=== PATIENT | female | born 1980 | race Caucasian/White ===

== ENCOUNTER 2017-05-19 09:35 | Emergency (ER) | payer BC ==
[~2017-05-19] VITALS: Ht 170.2 cm; Wt 80.7 kg
[2017-05-19] MEDS ORDERED: KETOROLAC TROMETHAMINE 60 MG INJ IM ONE ×2 (10:15→11:56)
[2017-05-19] MEDS ORDERED: ONDANSETRON IV *ER 4 MG/2 ML VIAL IV ONE (10:15)
[2017-05-19] MEDS ORDERED: MORPHINE SULFATE 2 MG/1 ML DISP.SYRIN IV ONE (10:15)
[2017-05-19] MEDS ORDERED: IV NS 1000 ML 1,000 ML IV ONE (10:15)
--- NOTE | 2017-05-19 10:34 | NUR ---
PT IN BED. IV INSERTED ON LT AC. PT'S IS PRESENT. PT IS CALM AND RELAXED HOWEVER, STATES THAT SHE IS IN 9/10 LOWER BACK PAIN. NO SIGNS OF DISTRESS WITNESSED. WILL CONTINUE TO MONITOR.
[2017-05-19 10:52] LABS: *URINE HCG, QUAL NEGATIVE (NEGATIVE)
--- NOTE | 2017-05-19 11:11 | NUR ---
PT IN ROUTE IN XRAY. JUST RECEIVED RESULTS FROM HCG TEST. PT WILL BE GIVEN MEDS UPON RETURN TO ER.
[2017-05-19] MEDS ORDERED: HYDROCODONE/APAP 5-325MG TABLET PO ONE (11:36)
[2017-05-19] MEDS ORDERED: ONDANSETRON 4 MG/2 ML VIAL ONE (11:55)
[2017-05-19 12:58] VITALS: BP 97/52
--- NOTE | 2017-05-19 13:01 | NUR ---
PER MD, PT READY FOR DC. PT INSTRUCTED TO FOLLOW UP WITH PRIMARY MD. PT ALSO INSTRUCTED TO RETURN IF SYMPTOMS PERSIST. PT ABLE TO ABUMLATE UNASSISTED WITH STEADY GAIT. PT REPORTS REDUCED BACK PAIN. PT SHOWS NO SIGNS OF DISTRESS.
== END 2017-05-19 13:07 | disposition home or self-care (01) ==
LOC: ER 09:35
DX: S39.012A Strain of muscle, fascia and tendon of lower back, initial encounter (principal); R51 Headache; V43.52XA Car driver injured in collision with other type car in traffic accident, initial encounter; Y92.410 Unspecified street and highway as the place of occurrence of the external cause; Y93.89 Activity, other specified; Y99.8 Other external cause status
CPT/HCPCS: 71045; 72040; 72100; 73020; 84703; 96361; 96372; 96374; 99285; A4663; J1885; J2405; J7030